=== PATIENT | female | born 1955 | race Caucasian/White ===

== ENCOUNTER 2016-03-13 09:54 | Emergency (ER) | payer BC ==
--- NOTE | 2016-03-13 10:14 | UC ---
UC General HPI - HPI Summary HPI Summary: complaint of nausea vomiting and diarrhea that started approx 2 days ago last episode of vomiting 8:30 last night, diarrhea 4PM yesterday body aches, felt like she might have had a fever this morning she is feeling better still has slight abdominal pain a nd body aches took some acetaminophen last night to help her sleep able to drink fluids today entire family had similar illness cannot go to work if she has vomited less than 24 hours ago - History of Current Complaint Chief Complaint: UCGI Stated Complaint: VOMITING Time Seen by Provider: 03/13/16 09:59 Hx Obtained From: Patient - Allergy/Home Medications Allergies/Adverse Reactions: Allergies Allergy/AdvReac Type Severity Reaction Status Date / Time hayfever Allergy Eyes Uncoded 03/13/16 10:01 Itchy/Swollen/Red/Watery Home Medications: Home Medications FLUoxetine CAP* [PROzac CAP*] 40 mg PO DAILY 03/13/16 [History Confirmed ] buPROPion SR TAB* [Wellbutrin SR TAB*] 350 mg PO DAILY 03/13/16 [History Confirmed 03/13/16] busPIRone TAB* [Buspar TAB*] 5 mg PO DAILY 03/13/16 [History Confirmed 03/13/16] PMH/Surg Hx/FS Hx/Imm Hx Previously Healthy: Yes Endocrine History Of: Denies: Diabetes Cardiovascular History Of: Denies: Cardiac Disorders, Pacemaker/ICD Respiratory History Of: Denies: Asthma - Surgical History Surgical History: None Surgery Procedure, Year, and Place: Tubal Ligation, 1985, [place]; Left Oopherectomy s/p Ectopic , 1984, [place] - Family History Known Family History: Negative: Cardiac Disease, Hypertension, Diabetes - Social History Occupation: Employed Full-time Lives: With Family Alcohol Use: one glass of wine daily Alcohol Amount: 1 Substance Use Type: None Smoking Status (MU): Never Smoked Tobacco - Immunization History Most Recent Influenza Vaccination: Not the 2016/2016 Season Review of Systems Constitutional: Fever, Fatigue Skin: Negative Eyes: Negative ENT: Negative Respiratory: Negative Cardiovascular: Negative Gastrointestinal: Vomiting, Diarrhea Genitourinary: Negative Motor: Negative Neurovascular: Negative Musculoskeletal: Negative Neurological: Negative Psychological: Negative All Other Systems Reviewed And Are Negative: Yes Physical Exam Triage Information Reviewed: Yes Appearance: No Pain Distress, Well-Nourished Vital Signs: Initial Vital Signs Temp 98.5 F 03/13/16 09:59 Pulse 72 03/13/16 09:59 Resp 16 03/13/16 09:59 BP 98/61 03/13/16 09:59 Pulse Ox 98 03/13/16 09:59 Vital Signs Reviewed: Yes Eyes: Positive: Conjunctiva Clear ENT: Positive: Pharynx normal, TMs normal. Negative: Nasal congestion Neck: Positive: No Lymphadenopathy Respiratory: Positive: Lungs clear, Normal breath sounds, No respiratory distress Cardiovascular: Positive: RRR, No Murmur, Pulses Normal Abdomen Description: Positive: Nontender, Soft Bowel Sounds: Positive: Present Musculoskeletal: Positive: No Edema Psychological Exam: Normal Skin Exam: Normal Course/Dx - Differential Dx - Multi-Symptom Differential Diagnoses: Other - gastroenteritis Provider Diagnoses: gastroenteritis Discharge - Discharge Plan Condition: Stable Disposition: HOME Patient Education Materials: Gastroenteritis (ED) Forms: *Work Release Referrals: No Primary Care Phys,NOPCP [Primary Care Provider] - [facility] [place] [facility] [Outside] Additional Instructions: Please review your discharge instructions. If your symptoms do not improve please call your primary care provider or return to urgent care.
[2016-03-13 10:22] VITALS: BP 98/61
== END 2016-03-13 10:29 | disposition home or self-care (01) ==
LOC: UCCORT 09:54
DX: K52.9 Noninfective gastroenteritis and colitis, unspecified (principal)
CPT/HCPCS: 99211; G0463

== ENCOUNTER 2017-01-12 12:38 | Emergency (ER) | payer BC ==
[2017-01-12 12:59] VITALS: BP 109/58
--- NOTE | 2017-01-12 13:36 | UC ---
Cardiac HPI - HPI Summary HPI Summary: Left sided chest pain under the left breast worse with moving and taking a deep breath. - History of Current Complaint Chief Complaint: UCChestPain Stated Complaint: LEFT SIDE PAIN SHORTNESS OF BREATH Time Seen by Provider: 01/12/17 13:29 Hx Obtained From: Patient Hx Last Menstrual Period: 5 yrs Onset/Duration: Sudden Onset, Lasting Days - 3, Still Present - about the same Initial Severity: Moderate Current Severity: None Chest Pain Location: Discrete at:, Left Anterior Character: Sharp/Stabbing Aggravating Factor(s): Movement, Deep Breaths Alleviating Factor(s): Rest Associated Signs & Symptoms: Positive: Chest Pain, Headaches - sinus pressure, SOB. Negative: Syncope, Fever, Diaphoresis, Nausea/Vomiting, Cough - Allergy/Home Medications Allergies/Adverse Reactions: Allergies Allergy/AdvReac Type Severity Reaction Status Date / Time hayfever Allergy Eyes Uncoded 01/12/17 12:51 Itchy/Swollen/Red/Watery PMH/Surg Hx/FS Hx/Imm Hx - Additional Past Medical History Additional PMH: Allergies Psychological History: Depression - Surgical History Surgical History: None Surgery Procedure, Year, and Place: ECTOPIC PREG -1990; Lt BREAST (2) CYST REMOVED - BENIGN; TUBAL LIGATION X's 2 - Family History Known Family History: Negative: Cardiac Disease, Hypertension, Diabetes - Social History Occupation: Employed Part-time Lives: With Family Alcohol Use: Occasionally Alcohol Amount: 1 Substance Use Type: None Smoking Status (MU): Never Smoked Tobacco Have You Smoked in the Last Year: No - Immunization History Most Recent Influenza Vaccination: Not the 2015/2016 Season Review of Systems Respiratory: Shortness Of Breath - with the chest pain Cardiovascular: Chest Pain Is Patient Immunocompromised?: No All Other Systems Reviewed And Are Negative: Yes Physical Exam Triage Information Reviewed: Yes Appearance: Well-Appearing, No Pain Distress, Well-Nourished, Pain Distress - just with deep breaths and movement Vital Signs: Initial Vital Signs Temp 98 F 01/12/17 12:52 Pulse 64 01/12/17 12:52 Resp 18 01/12/17 12:52 BP 109/58 01/12/17 12:52 Pulse Ox 100 01/12/17 12:52 Vital Signs Reviewed: Yes Eyes: Positive: Conjunctiva Clear ENT: Positive: Pharynx normal, TMs normal Neck exam: Normal Respiratory: Positive: Lungs clear, No respiratory distress, Other: - Tender in the mid axillary line around the 8th-10th costochondral junction. Cardiovascular Exam: Normal Abdominal Exam: Normal Musculoskeletal: Positive: ROM Limited @ - chest wall with deep breathing Neurological Exam: Normal Psychological Exam: Normal Skin Exam: Normal Diagnostics - Radiology No standard instances Xray Interpretation: No Acute Changes Radiology Interpretation Completed By: ED Physician - Differential Diagnoses - Chest Pain Differential Diagnosis/HQI/PQRI: Chest Wall, Lower Respiratory Infection, Pulmonary Embolism - Clinical Impression Provider Diagnoses: Chest wall pain Discharge - Discharge Plan Condition: Stable Disposition: HOME Prescriptions: Cyclobenzaprine TAB* [Flexeril 10 MG TAB*] 10 mg PO TID PRN #30 tab PRN Reason: Pain - Chest Ibuprofen TAB* [Motrin TAB* 600 MG] 600 mg PO Q6H PRN #100 tab PRN Reason: Pain - Chest Patient Education Materials: Chest Wall Pain (ED), Ibuprofen (By mouth), Cyclobenzaprine (By mouth) Referrals: Yogesh Hart MD [Primary Care Provider] - Additional Instructions: Adding magnesium can also help with muscle spasm pain.
--- NOTE | 2017-01-12 14:32 | RAD ---
INDICATION: Left anterior chest wall pain with shortness of breath COMPARISON: None TECHNIQUE: PA and lateral views of the chest were obtained. FINDINGS: The heart and mediastinum are normal in size and contour. On the AP view the lungs appear hyperaerated. On the lateral view there is mild flattening of the diaphragm and increased retrosternal airspace. The lungs are otherwise grossly clear of suspicious nodules or lobar consolidation. Mild degenerative change of the thoracic spine includes loss of intervertebral disc height and marginal osteophyte formation. There is no radiographic evidence of free air beneath the diaphragm IMPRESSION: RADIOGRAPHIC FINDINGS ARE CONSISTENT WITH THE STIGMATA OF CHRONIC OBSTRUCTIVE PULMONARY DISEASE IN THIS OTHERWISE NONACUTE CHEST X-RAY.
== END 2017-01-12 14:31 | disposition home or self-care (01) ==
LOC: UCCORT 12:38
DX: R07.89 Other chest pain (principal); R00.1 Bradycardia, unspecified; F32.9 Major depressive disorder, single episode, unspecified
CPT/HCPCS: 71020; 93005; 99212; G0463